=== PATIENT | female | born 1990 | race Caucasian/White ===

== ENCOUNTER → 2017-03-15 | Outpatient (CLI) | payer OTHER | LOC: ULTRA 10:10 | DX: K80.20 Calculus of gallbladder without cholecystitis without obstruction (principal); N20.0 Calculus of kidney ==

== ENCOUNTER 2017-03-27 05:29 | Day surgery (SDC) | payer OTHER ==
[~2017-03-27] VITALS: Ht 160 cm; Wt 94.8 kg
--- NOTE | ~2017-03-27 | O ---
[facility] [place] [address] OPERATIVE REPORT Name: CANDIDO CHESTER Room #: DEP [facility]..#: [id number] Admission: 03/27/17 Attend Phys: Obi Moctezuma MD, F Discharge: 03/27/17 Date of : 89 Report #: [id number] THIS REPORT FOR: //name// CC: David Moctezuma DATE OF SERVICE: 03/27/2017 SURGEON: Obi Moctezuma MD SAW CLEANER: None. PREOPERATIVE DIAGNOSES: 1. Symptomatic cholelithiasis. 2. Left abdominal skin lesion. POSTOPERATIVE DIAGNOSES: 1. Symptomatic cholelithiasis. 2. Left abdominal skin lesion. PROCEDURES: 1. Robotic (laparoscopic) cholecystectomy. 2. Excision of left abdominal skin lesion. ANESTHESIA: General endotracheal anesthesia and local anesthetic. ESTIMATED BLOOD LOSS: 2 mL. SPECIMENS: 1. Gallbladder. 2. Left abdominal skin lesion. COMPLICATIONS: None appreciated. INDICATIONS FOR PROCEDURE: This is a 26-year-old female patient who has had difficulty with crampy postprandial abdominal pain, nausea, vomiting, and diarrhea with no fever or chills. Abdominal ultrasound showed cholelithiasis without gallbladder wall thickening, pericholecystic fluid, or common bile duct dilatation. The patient presents now for robotic cholecystectomy. On exam, she did have a left abdominal skin lesion. OPERATIVE FINDINGS: The skin lesion was approximately 2.5 mm and with a poorly defined border. The lesion itself was not extensively pigmented and not raised. It appeared otherwise benign. The lesion was located in an area where I planned to place one of the robotic ports, thus it was excised. [facility] [address] [place] [place] [address] OPERATIVE REPORT Name: CANDIDO CHESTER Room #: DEP [facility] M.R.#: [id number] Admission: 03/27/17 Attend Phys: Obi Moctezuma MD, F Discharge: 03/27/17 Date of : [birth year] Report #: [id number] Upon entrance into the abdominal cavity, the patient's liver, stomach, small-bowel and colon in the surrounding area appeared otherwise normal. The gallbladder itself was not acutely inflamed. With robotic dissection, the critical view consisting of the cystic artery, cystic duct, and lower edge of the gallbladder forming a window through which the liver was visible was seen prior to clipping and dividing the cystic artery and cystic duct. After removal of the gallbladder from the liver bed, the liver bed was completely hemostatic. The gallbladder was opened on the back table. Nonpigmented sludge and stones were present within the gallbladder. There was no acute inflammatory changes associated with the gallbladder. At the conclusion of the operation, the sponge, needle, and instrument counts were correct and there was no evidence for iatrogenic injury. DESCRIPTION OF PROCEDURE IN DETAIL: After the benefits and risks of the procedure were explained to the patient, which include, but are not limited to risks of bleeding, infection, postoperative pain, postoperative expectations as well as risks of DVT, pulmonary embolism, and conversion to either laparoscopic or an open procedure, informed consent was obtained. The patient was identified in the preoperative holding area. She was given IV antibiotics in line with the SCIP metrics. The patient was then taken to the operating room and she was placed in the supine position. SCDs were placed on the patient's bilateral lower extremities and pneumatic compression was initiated. The patient was then given IV sedation and she was intubated without incident. A time-out was performed to identify the correct patient and procedure. The patient was positioned in the OR with the head away from the anesthesiologist. This was done so to facilitate docking the robot. The patient's abdomen was then prepped and draped in the standard sterile fashion. A time-out was performed to identify the correct patient and procedure. Local anesthetic was infiltrated into the skin and subcutaneous tissue in the left abdomen where an 8-mm transverse incision was made. A 5-mm Visiport was placed intraperitoneally. Pneumoperitoneum was then achieved with insufflation of carbon dioxide to 15 mmHg. A 30-degree angled laparoscope was inserted. An infraumbilical 11-mm and right lower quadrant 8-mm ports times 2 were placed under direct visualization after local anesthetic was infiltrated into the skin and subcutaneous tissue and appropriately sized incisions were made. The 5-mm port was then switched out for an 8-mm port under direct visualization. The patient was then placed in the reverse Trendelenburg position, slightly rotated to her left. The robot was then docked to the patient. The robot was advanced to the patient's right shoulder and angled diagonally towards the umbilicus. The patient was then placed in steeper reverse Trendelenburg position. The robot was docked to the ports and each arm was appropriately burped. The prograsper instruments were placed in the 2nd and 3rd arms; the hook cautery was placed in the first arm. Each instrument was advanced into the abdominal cavity under [facility] [address] [place] [address] OPERATIVE REPORT Name: CHESTERCANDIDO Room #: DEP [facility] [place] M.R.#: [id number] Admission: 03/27/17 Attend Phys: Obi Moctezuma MD, F Discharge: 03/27/17 Date of : 89 Report #: [id number] direct visualization. I then broke scrub to perform the dissection at the robotic console. The dome of the gallbladder was retracted in a cephalad direction. The gallbladder peritoneum was then scored medially and laterally and the dissection was carried out around the cystic artery and cystic duct with the hook cautery. The critical view as described above was seen. The cystic artery was triply clipped and divided sharply leaving 2 clips on the cystic duct stump. The cystic artery was doubly clipped and divided sharply as well with good hemostasis. The gallbladder was then dissected out the liver bed without entrance into the gallbladder or liver bed using electrocautery. The gallbladder was placed in the right upper quadrant of the abdomen in the right perihepatic gutter and the instruments were removed under direct visualization. The robot was then undocked from the ports. The 5-mm 30-degree angled laparoscope was inserted and the gallbladder was placed in an Endopouch, then removed through the infraumbilical port site. The infraumbilical port site fascial opening was closed under direct visualization with the Nick-Bob laparoscopic fascial closure device using an 0 PDS suture. The suture was then tied under direct visualization to ensure no incorporation of intraabdominal content with the closure. The abdominal cavity was then desufflated and the ports were removed. Interrupted subcuticular 4-0 Monocryl sutures and Dermabond were used to close the skin incisions. The patient tolerated the procedure well. She was awakened, extubated, and taken to recovery room in stable condition with no apparent intraoperative complications. <ELECTRONICALLY SIGNED> By: Obi Moctezuma MD, FACS 03/29/17 1001 [id number] [id number] Obi Moctezuma MD, ERIC /nt
--- NOTE | ~2017-03-27 | S ---
[place] [address] SURGICAL PATH RPT PROCEDURE Name: SHERITA MCDANIEL Room #: DEP [facility] [place]..#: [id number] Admission: 03/27/17 Date of : 89 Discharge: 03/27/17 Report #: [id number] Path Case #: [id number] PATHOLOGY REPORT COLLECTION DATE: 03/27/2017 RECEIVED DATE: 03/27/2017 SUBMITTING PHYS: Dr. Obi Moctezuma OTHER PHYS: Dr. David Jimenez SPECIMEN(S) RECEIVED: A.Abdominal skin left abdomen B.Gallbladder * * * * * * * * * * * * FINAL DIAGNOSIS: A. Skin, lesion, left abdomen, excision: - Traumatized junctional nevus, inflamed. (REV part "A": Dr. NAVARRO). B. Gallbladder, cholecystectomy: - Chronic cholecystitis. - Cholelithiasis. (LAITHM:; 03/28/2017) PATHOLOGIST: Sedrick Wisdom M.D. REPORT ELECTRONICALLY SIGNED BY: Sedrick Wisdom M.D. DATE/TIME: 03/29/2017 13:03 * * * * * * * * * * * * GROSS PATHOLOGY: A. The specimen is received in formalin, labeled "Sherita Mcdaniel, abdominal skin lesion, left abdomen". Received is an unoriented, small ellipse of skin measuring 0.8 x 0.5 x 0.2 cm. The epidermal surface displays a poorly circumscribed, flat, pale garcia lesion measuring 0.5 x 0.3 cm. The surgical resection margin is inked black. The specimen is longitudinally bisected and entirely submitted in cassette A1. B. Received in formalin labeled "Sherita Mcdaniel gallbladder," is a 6.2 x 3.1 x 1.4 cm, previously opened gallbladder with smooth, shiny, pale greendark green serosal surfaces. The gallbladder is opened to show a dark green, velvety, bile-stained mucosa and an average wall thickness of 0.2 cm. Calculi are present and no masses are noted grossly. [employer] Station Attendant sections from the body and fundus are submitted along with the proximal margin in cassette A1. (SNA; 03/27/2017) [address] [place] [address] SURGICAL PATH RPT PROCEDURE Name: SHERITA MCDANIEL Room #: DEP [facility].#: [id number] Admission: 03/27/17 Date of : [birth year] Discharge: 03/27/17 Report #: [id number] Path Case #: [id number] CLINICAL HISTORY: Gallbladder disease INITIAL CPT CODE(S): A; 42385 B; 04080 Professional services performed by [facility] at [place] [address] [address], [place] [address] Technical services performed by [facility] at [address] [place] [address], [address] [address]. [facility] [address] [address] PHONE: [phone] DIRECTOR: Pedrito Powers M.D. * * * END OF REPORT * * *
[~2017-03-27 05:29] MED LIST: DEPO-PROVER150 MG/M1 IM; LEVOTHYROXINE0.05 MG PO; OMEPRAZOLE40 MG PO; VENTOLIN HFA 1818 GM INH
[2017-03-27 07:44] VITALS: BP 112/55
[2017-03-27] MEDS ORDERED: HYDROCODONE-AP1 EAC6 PO (10:26)
[2017-03-27 10:57] VITALS: BP 112/55
== END 2017-03-27 11:30 | disposition home or self-care (01) ==
LOC: OR 05:29 → TBA 05:29 → OR 09:01
DX: K80.10 Calculus of gallbladder with chronic cholecystitis without obstruction (principal); D22.5 Melanocytic nevi of trunk; E03.9 Hypothyroidism, unspecified; K21.9 Gastro-esophageal reflux disease without esophagitis; J45.909 Unspecified asthma, uncomplicated; Z98.890 Other specified postprocedural states
CPT/HCPCS: 49000; 50010; 50101; 50249; 50411; 50555; 50558; 51975; 52265; 54022; 54118; 56525; 56526; 56632; 56641; 57006; 62110; 62900; 70005